=== PATIENT | female | born 1970 | race Caucasian/White ===

== ENCOUNTER 2017-08-18 16:43 | Emergency (ER) | payer MEDICAID, OTHER ==
[2017-08-18 17:12] LABS: URINE BLOOD (Dip) POC 1+ (NEGATIVE); URINE GLUCOSE (Dip) POC Negative (NEGATIVE); URINE KETONES (Dip) POC Negative (NEGATIVE); URINE LEUKOCYTE EST (Dip) POC Negative (NEGATIVE); URINE NITRITE (Dip) POC Negative (NEGATIVE); URINE TOTAL PROTEIN POC Negative (NEGATIVE)
[2017-08-18 17:12] LABS: URINE PH (Dip) POC 5.5 (5.0-8.5)
[2017-08-18] MEDS: predniSONE 20 MG TAB PO (17:32)
[2017-08-18] MEDS: KETOROLAC 30 MG INJ IM (17:32)
== END 2017-08-18 18:40 | disposition home or self-care (01) ==
LOC: FTE 16:43
DX: M54.41 Lumbago with sciatica, right side (principal)
CPT/HCPCS: 72131; 81003; 81025; 96372; 99285-25